=== PATIENT | male | born 1955 | race Caucasian/White ===

== ENCOUNTER 2021-07-18 06:46 | Observation (INO) ==
[2021-07-18] MEDS ORDERED: Albuterol 2.5 MG/3 ML NEBULIZER IH PRN (07:23)
[2021-07-18 07:55] LABS: Hematocrit 45.7 % (37.5-50.1); Hemoglobin 15.2 g/dL (12.9-16.9); Mean Corpuscular HGB Conc 33.3 g/dL (31.6-35.5); Mean Corpuscular Hemoglobin 30.3 pg (28.0-33.3); Mean Platelet Volume 10.5 fL (9.4-12.4); Platelet Count 231 K/mcL (140-400); Red Blood Count 5.02 M/mcL (4.19-5.50); Red Cell Distribution Width 13.4 % (11.5-14.5); White Blood Count 9.1 K/mcL (4.3-11.1)
[2021-07-18] MEDS: Ipratropium/Albuterol Neb 3 ML IH SCH ×4 (08:21→20:43)
[2021-07-18 08:27] LABS: BUN/Creatinine Ratio 9 (6-26); Blood Urea Nitrogen 9 mg/dL (8-23); Calcium 9.3 mg/dL (8.6-10.3); Carbon Dioxide 28 mEq/L (23-29); Chloride 101 mEq/L (98-107); Glucose 238 mg/dL (70-105); Osmolality,Calculated 288 (280-300); Potassium 4.3 mEq/L (3.5-5.1); Sodium 136 mEq/L (136-145); eGFR For African Americans > 60 (> 60); eGFR For Non-African Americans > 60 (> 60)
[2021-07-18] MEDS ORDERED: Ipratropium/Albuterol Neb 3 ML IH ONE (08:53)
[2021-07-18] MEDS ORDERED: Isovue-370 500 ML BOTTLE IVP ONE (09:09)
[2021-07-18 10:39] LABS: Troponin I 0.07 ng/mL (< 0.04)
[2021-07-18 10:45] LABS: Thyroid Stimulating Hormone 2.308 mcIU/mL (0.340-5.600)
[2021-07-18 10:51] LABS: INR 1.1; Prothrombin Time 12.7 Seconds (9.4-12.1)
[2021-07-18 10:53] LABS: D-Dimer 446 ng/mLFEU (0-500)
[2021-07-18 10:54] LABS: Activated Partial Thrombo Time 33.7 Seconds (26.0-36.0)
[2021-07-18] MEDS ORDERED: *HR* Heparin 5,000 UNIT/ML VIAL IVP PRN ×2 (11:12)
[2021-07-18] MEDS ORDERED: Aspirin 325 MG TABLET PO ONE (11:12)
[2021-07-18] MEDS ORDERED: *HR* Heparin 5,000 UNIT/ML VIAL IVP ONE ×2 (11:12→15:15)
[2021-07-18 11:17] LABS: Magnesium 1.9 mg/dL (1.6-2.6)
[2021-07-18 11:29] LABS: Heparin anti-factor XA UFH < 0.04 IU/mL (0.30-0.70)
[2021-07-18] MEDS ORDERED: Naloxone 0.4 MG/ML INJ IVP PRN (11:44)
[2021-07-18] MEDS ORDERED: Ondansetron 4 MG/2 ML VIAL IVP PRN (11:44)
[2021-07-18] MEDS ORDERED: Melatonin 3 MG TABLET PO PRN (11:44)
[2021-07-18] MEDS ORDERED: Perflutren Lipid Microsphere 1.3 ML in 0.9 % Sodium Chloride 8.7 ML IVP PRN (11:47)
[2021-07-18 12:21] LABS: Adenovirus Not Detected (Not Detect); Bordetella Pertussis Not Detected (Not Detect); Chlamydophila pneumoniae Not Detected (Not Detect); Coronavirus 229E Not Detected (Not Detect); Coronavirus HKU1 Not Detected (Not Detect); Coronavirus NL63 Not Detected (Not Detect); Coronavirus OC43 Not Detected (Not Detect); Human Metapneumovirus Not Detected (Not Detect); Human Rhinovirus/Enterovirus Not Detected (Not Detect); Influenza A Subtype 2009 H1 Not Detected (Not Detect); Influenza B Not Detected (Not Detect); Mycoplasma pneumoniae Not Detected (Not Detect); Parainfluenza Virus 1 Not Detected (Not Detect); Parainfluenza Virus 2 Not Detected (Not Detect); Parainfluenza Virus 3 Not Detected (Not Detect); Parainfluenza Virus 4 Not Detected (Not Detect); Respiratory Syncytial Virus Not Detected (Not Detect); SARS-CoV-2 Not Detected (Not Detect)
[2021-07-18] MEDS: Heparin 25,000UNIT/250ML 1/2NS 25,000 UNIT/250 ML IV.SOLN IVC SCH (15:33)
[2021-07-18] MEDS: Metoprolol XL (24 HR) Succ 25 MG TAB.ER.24H PO SCH (15:39)
[2021-07-18] MEDS: Doxycycline 100 MG CAPSULE PO SCH (22:23)
[2021-07-18] MEDS: Cefdinir 300 MG CAPSULE PO SCH (22:23)
[2021-07-19] MEDS: Ipratropium/Albuterol Neb 3 ML IH SCH ×4 (03:28→19:53)
[2021-07-19 05:37] LABS: Basophils % 0.6 %; Eosinophils # 0.3 K/mcL (0.0-0.6); Eosinophils % 3.9 %; Hematocrit 39.8 % (37.5-50.1); Immature Granulocytes % 0.3 % (0-4); Lymphocytes # 2.3 K/mcL (0.6-4.6); Lymphocytes % 32.5 %; Mean Corpuscular HGB Conc 32.7 g/dL (31.6-35.5); Mean Corpuscular Hemoglobin 29.8 pg (28.0-33.3); Mean Corpuscular Volume 91.3 fL (83.0-100.0); Mean Platelet Volume 10.6 fL (9.4-12.4); Monocytes # 0.7 K/mcL (0.0-1.3); Monocytes % 9.3 %; Neutrophils # 3.8 K/mcL (1.6-8.9); Platelet Count 214 K/mcL (140-400); Red Blood Count 4.36 M/mcL (4.19-5.50); Red Cell Distribution Width 13.4 % (11.5-14.5); Segmented Neutrophils % 53.4 %; White Blood Count 7.2 K/mcL (4.3-11.1)
[2021-07-19 06:01] LABS: BUN/Creatinine Ratio 9 (6-26); Blood Urea Nitrogen 10 mg/dL (8-23); Calcium 8.9 mg/dL (8.6-10.3); Carbon Dioxide 27 mEq/L (23-29); Chloride 103 mEq/L (98-107); Chol/HDL Ratio 4.4 (0-4.9); Cholesterol 148 mg/dL (< 200); Glucose 226 mg/dL (70-105); HDL Cholesterol 34 mg/dL (40-59); LDL Cholesterol,Calculated 93 mg/dL (< 100); Magnesium 1.8 mg/dL (1.6-2.6); Osmolality,Calculated 294 (280-300); Potassium 3.5 mEq/L (3.5-5.1); Sodium 139 mEq/L (136-145); Triglycerides 105 mg/dL (< 150); eGFR For African Americans > 60 (> 60); eGFR For Non-African Americans > 60 (> 60)
[2021-07-19] MEDS: Doxycycline 100 MG CAPSULE PO SCH ×2 (08:37→20:59)
[2021-07-19] MEDS: Cefdinir 300 MG CAPSULE PO SCH ×2 (08:37→20:59)
[2021-07-19] MEDS: lisinopriL 10 MG TABLET PO SCH (08:37)
[2021-07-19] MEDS: Metoprolol XL (24 HR) Succ 25 MG TAB.ER.24H PO SCH (08:37)
[2021-07-19] MEDS ORDERED: amLODIPine 5 MG TABLET PO SCH (09:00)
[2021-07-19] MEDS: Heparin 25,000UNIT/250ML 1/2NS 25,000 UNIT/250 ML IV.SOLN IVC SCH (09:22)
[2021-07-19 09:38] LABS: Estimated Average Glucose 260 mg/dl; Hemoglobin A1C 10.7 %
[2021-07-19] MEDS ORDERED: D5% in Water 1,000 ML IVC PRN (10:18)
[2021-07-19] MEDS ORDERED: *HR* Dextrose 50 % in Water (Syg) 50 ML SYRINGE IVP PRN (10:18)
[2021-07-19] MEDS ORDERED: Dextrose Gel 15 GM/37.5 ML TUBE PO PRN ×2 (10:18)
[2021-07-19] MEDS: Aspirin 81 MG TAB.CHEW PO SCH (12:35)
[2021-07-19] MEDS: Insulin LISPRO 300 UNITS/3 ML VIAL SUBQ SCH ×2 (12:35→16:13)
[2021-07-19] MEDS ORDERED: *HR* Rivaroxaban 10 MG TABLET PO SCH (14:00)
[2021-07-19] MEDS ORDERED: Insulin LISPRO 300 UNITS/3 ML VIAL SUBQ SCH (21:00)
[2021-07-19] MEDS ORDERED: GuaiFENesin Liq 200 MG/10 ML UDC PO PRN (22:42)
[2021-07-20] MEDS: Ipratropium/Albuterol Neb 3 ML IH SCH (03:41)
[2021-07-20 06:59] VITALS: BP 151/79; PULSE 57; TEMP 97.9; O2SAT 94
[2021-07-20] MEDS: Insulin LISPRO 300 UNITS/3 ML VIAL SUBQ SCH (07:06)
[2021-07-20] MEDS: Doxycycline 100 MG CAPSULE PO SCH (08:58)
[2021-07-20] MEDS: lisinopriL 10 MG TABLET PO SCH (08:58)
[2021-07-20] MEDS: Aspirin 81 MG TAB.CHEW PO SCH (08:58)
[2021-07-20] MEDS: Cefdinir 300 MG CAPSULE PO SCH (08:58)
[2021-07-20] MEDS ORDERED: Metoprolol XL (24 HR) Succ 50 MG TAB.ER.24H PO SCH (09:00)
== END 2021-07-20 10:15 | disposition home or self-care (01) ==
LOC: EMEROOARM 06:46 → 3BNU 06:46 → SUATTDRO 11:53 → 3BNU 12:42
PROVIDERS: ADMIT Hospitalist; ATTEND Internal Medicine